=== PATIENT | male | born 1985 | race Caucasian/White ===

== ENCOUNTER 2017-05-22 17:31 | Emergency (ER) | payer BC ==
--- NOTE | 2017-05-22 18:23 | EDM.PDOC ---
ED HPI GENERAL MEDICAL PROBLEM - General Stated Complaint: PT HURT RT ANKLE Time Seen by Provider: 05/22/17 17:36 Source of Information: Reports: Patient History Limitations: Reports: No Limitations - History of Present Illness INITIAL COMMENTS - FREE TEXT/NARRATIVE: HISTORY AND PHYSICAL: History of present illness: Patient is a 31-year-old male who presents to the emergency room today with complaints of right heel pain. He states that he was putting his shoe on pullback on his toes to put his socks shoe on and felt some discomfort. He states he was able to ambulate without any pain or difficulty. As the day progressed he started to have increasing pain to his right heel, which was worse with weightbearing. Any injury or trauma. Denies any localized areas of erythema or warmth. Patient denies any fever, chills, chest pain, shortness of breath, abdominal pain, nausea, vomiting, diarrhea or constipation. Review of systems: As per history of present illness and below otherwise all systems reviewed and negative. Past medical history: As per history of present illness and as reviewed below otherwise noncontributory. Surgical history: As per history of present illness and as reviewed below otherwise noncontributory. Social history: No reported history of drug or alcohol abuse. Family history: As per history of present illness and as reviewed below otherwise noncontributory. Physical exam: General:Well-developed and well-nourished 31-year-old male. Alert and oriented. Nontoxic appearing and in no acute distress. HEENT: Atraumatic, normocephalic, pupils equal and reactive bilaterally, negative for conjunctival pallor or scleral icterus, mucous membranes moist, throat clear, neck supple, nontender, trachea midline. No drooling or trismus noted. No meningeal signs Lungs: Clear to auscultation, breath sounds equal bilaterally, chest nontender. Heart: S1S2, regular rate and rhythm without overt murmur Abdomen: Soft, obese, nontender. Pelvis: Stable nontender. Genitourinary: Deferred. Rectal: Deferred. Skin: Intact, warm, dry. No lesions or rashes noted. Extremities: Atraumatic, moves all extremities per self without difficulty or deficits. Active flexion and extension of the right ankle without pain. Does have pain when pressing directly on the right calcaneus. Does not appear to have any Achilles tendon involvement, negative for cords or calf pain. Strong pedal pulses bilaterally. Capillary refill less than 3 seconds bilaterally. Neurovascular unremarkable. Neuro: Awake, alert, oriented. Cranial nerves II through XII unremarkable. Cerebellum unremarkable. Motor and sensory unremarkable throughout. Exam nonfocal. Notes: X-ray shows no evidence of fracture, dislocation or soft tissue swelling. Discussed with patient the possibilities of a multitude of factors which could be causing his heel discomfort. We discussed his weight, overuse or tendon involvement. Will give the patient crutches as he states it is too painful to bear weight. A portable care measures were reviewed. I encouraged him to follow- up with podiatry in the next couple days. Both patient and his voice understanding and are agreeable to plan of care. They deny any questions at this time. Diagnostics: [] Therapeutics: Crutches Impression: Heel Pain, Right Plan: 1. Rest, ice, elevate the affected extremity. 2. Tylenol and/or ibuprofen as needed for pain management. Tramadol for evening/ nighttime use. This medication may cause drowsiness, so do not take while driving or needing to function outside the house. You may use the crutches as needed to be nonweight bearing over the next 2-3 days. 3. Please follow-up with podiatry for further evaluation and management if he continued to have pain. Return to the ED as needed and as discussed. Definitive disposition and diagnosis as appropriate pending reevaluation and review of above. Onset: Today Duration: Hour(s): Location: Reports: Lower Extremity, Right Right Ankle Pain Score (Numeric/FACES): 10 - Related Data Allergies Allergy/AdvReac Type Severity Reaction Status Date / Time No Known Allergies Allergy Verified 05/22/17 18:10 Home Meds: Home Meds . [No Known Home Meds] 05/22/17 [History] Review of Systems - Review of Systems Review Of Systems: ROS reveals no pertinent complaints other than HPI. ED EXAM, GENERAL - Physical Exam Exam: See Below (See dictation) Course - Vital Signs Last Recorded V/S: Last Vital Signs Temp 98.5 F 05/22/17 18:11 Pulse 89 05/22/17 18:11 Resp 16 05/22/17 18:11 BP 148/94 H 05/22/17 18:11 Pulse Ox 95 05/22/17 18:11 - Orders/Labs/Meds Orders: Active Orders 24 hr Category Date Time Status Ankle Min 3V Rt [CR] Stat Exams 05/22/17 17:36 Taken DME for Discharge [COMM] Stat Oth 05/22/17 18:24 Ordered Departure - Departure Time of Disposition: 18:23 Disposition: Home, Self-Care 01 Clinical Impression: Pain of right heel - Discharge Information Instructions: Plantar Fasciitis With Rehab-[facility] Referrals: PCP,None [Primary Care Provider] - Additional Instructions: The following information is given to patients seen in the emergency department who are being discharged to home. This information is to outline your options for follow-up care. We provide all patients seen in our emergency department with a follow-up referral. The need for follow-up, as well as the timing and circumstances, are variable depending upon the specifics of your emergency department visit. If you don't have a primary care physician on staff, we will provide you with a referral. We always advise you to contact your personal physician following an emergency department visit to inform them of the circumstance of the visit and for follow-up with them and/or the need for any referrals to a consulting specialist. The emergency department will also refer you to a specialist when appropriate. This referral assures that you have the opportunity for follow-up care with a specialist. All of these measure are taken in an effort to provide you with optimal care, which includes your follow-up. Under all circumstances we always encourage you to contact your private physician who remains a resource for coordinating your care. When calling for follow-up care, please make the office aware that this follow-up is from your recent emergency room visit. If for any reason you are refused follow-up, please contact the [facility] Emergency Department at and asked to speak to the emergency department charge nurse. [facility] [address] [place] [id number] [place] [address] [address] 1. Rest, ice, elevate the affected extremity. 2. Tylenol and/or ibuprofen as needed for pain management. Tramadol for evening/ nighttime use. This medication may cause drowsiness, so do not take while driving or needing to function outside the house. You may use the crutches as needed to be nonweight bearing over the next 2-3 days. 3. Please follow-up with podiatry for further evaluation and management if he continued to have pain. Return to the ED as needed and as discussed. - My Orders Last 24 Hours: My Active Orders 05/22/17 17:36 Ankle Min 3V Rt [CR] Stat 05/22/17 18:24 DME for Discharge [COMM] Stat - Assessment/Plan Last 24 Hours: My Active Orders 05/22/17 17:36 Ankle Min 3V Rt [CR] Stat 05/22/17 18:24 DME for Discharge [COMM] Stat
--- NOTE | 2017-05-23 14:25 | CR ---
EXAM DATE: 05/22/17 PATIENT'S AGE: 31 Patient: NICKIE GREEN Facility: [place], [place] Site . Site : 1985 Study: XRay Extremity Right ANKLE [id number]/12/2018 5:49:31 PM Ordering Physician: Doctor Walls Final Report: Indication: Right ankle pain Technique: Right ankle 3 views Comparison: None Findings: Bones: Alignment is normal. No fractures or bone lesions. Joint spaces: Joint spaces are well maintained. No degenerative changes. Soft tissues: Unremarkable. Impression: No findings to explain pain. Dictated by Yefri Garcia MD @ May 22 2017 6:25PM (Electronic Signature) Report Signed by Proxy. ELISEO
== END 2017-05-22 18:42 | disposition home or self-care (01) ==
LOC: MW.ED 17:31
DX: M79.671 Pain in right foot (principal)
CPT/HCPCS: 73610-26-RT; 73610-RT; 99283

== ENCOUNTER 2017-07-16 16:10 | Emergency (ER) | payer BC ==
--- NOTE | 2017-07-16 16:50 | EDM.PDOC ---
ED HPI GENERAL MEDICAL PROBLEM - General Chief Complaint: Lower Extremity Injury/Pain Stated Complaint: RIGHT KNEE PAIN Time Seen by Provider: 07/16/17 16:44 - History of Present Illness INITIAL COMMENTS - FREE TEXT/NARRATIVE: HISTORY AND PHYSICAL: History of present illness: Patient 31-year-old white male presents with concern of right knee pain he said an injury 2 days ago when his knee "popped" he states he's had intermittent problems with his right knee for years he was seen recently at a clinic there was no imaging studies done and he was told he has knee pain with no other follow-up or specifics given. Review of systems: As per history of present illness and below otherwise all systems reviewed and negative. Past medical history: As per history of present illness and as reviewed below otherwise noncontributory. Surgical history: As per history of present illness and as reviewed below otherwise noncontributory. Social history: No reported history of drug or alcohol abuse. Family history: As per history of present illness and as reviewed below otherwise noncontributory. Physical exam: HEENT: Atraumatic, normocephalic, pupils reactive, negative for conjunctival pallor or scleral icterus, mucous membranes moist, throat clear, neck supple, nontender, trachea midline. Lungs: Clear to auscultation, breath sounds equal bilaterally, chest nontender. Heart: S1S2, regular, negative for clicks, rubs, or JVD. Abdomen: Soft, nondistended, nontender. Negative for masses or hepatosplenomegaly. Negative for costovertebral tenderness. Pelvis: Stable nontender. Genitourinary: Deferred. Rectal: Deferred. Extremities: Right knee joint is grossly stable no point tenderness no crepitation no effusion appreciated Neuro: Awake, alert, oriented. Cranial nerves II through XII unremarkable. Cerebellum unremarkable. Motor and sensory unremarkable throughout. Exam nonfocal. Diagnostics: X-ray right knee Therapeutics: None Impression: #1 intermittent right knee pain #2 recent right knee injury Definitive disposition and diagnosis as appropriate pending reevaluation and review of above. right knee Pain Score (Numeric/FACES): 7 - Related Data Allergies Allergy/AdvReac Type Severity Reaction Status Date / Time No Known Allergies Allergy Verified 07/16/17 16:23 Home Meds: Home Meds . [No Known Home Meds] 05/22/17 [History] Past Medical History - Past Health History Medical/Surgical History: Denies Medical/Surgical History - Infectious Disease History Infectious Disease History: Reports: Chicken Pox Social & Family History - Family History Family Medical History: Noncontributory - Tobacco Use Smoking Status *Q: Never Smoker - Caffeine Use Caffeine Use: Reports: None - Alcohol Use Days Per Week of Alcohol Use: 2 Number of Drinks Per Day: 3 Total Drinks Per Week: 6 - Recreational Drug Use Recreational Drug Use: No Review of Systems - Review of Systems Review Of Systems: ROS reveals no pertinent complaints other than HPI. ED EXAM, GENERAL - Physical Exam Exam: See Below (See dictation) Course - Vital Signs Last Recorded V/S: Last Vital Signs Temp 37.2 C 07/16/17 16:24 Pulse 112 H 07/16/17 16:24 Resp 18 07/16/17 16:24 BP 163/93 H 07/16/17 16:24 Pulse Ox 97 07/16/17 16:24 - Orders/Labs/Meds Orders: Active Orders 24 hr Category Date Time Status Knee 3V Rt [CR] Stat Exams 07/16/17 16:48 Ordered Departure - Departure Time of Disposition: 16:49 Disposition: Home, Self-Care 01 Condition: Good Clinical Impression: Knee injury - Discharge Information Referrals: PCP,None [Primary Care Provider] - Additional Instructions: The following information is given to patients seen in the emergency department who are being discharged to home. This information is to outline your options for follow-up care. We provide all patients seen in our emergency department with a follow-up referral. The need for follow-up, as well as the timing and circumstances, are variable depending upon the specifics of your emergency department visit. If you don't have a primary care physician on staff, we will provide you with a referral. We always advise you to contact your personal physician following an emergency department visit to inform them of the circumstance of the visit and for follow-up with them and/or the need for any referrals to a consulting specialist. The emergency department will also refer you to a specialist when appropriate. This referral assures that you have the opportunity for followup care with a specialist. All of these measure are taken in an effort to provide you with optimal care, which includes your followup. Under all circumstances we always encourage you to contact your private physician who remains a resource for coordinating your care. When calling for followup care, please make the office aware that this follow-up is from your recent emergency room visit. If for any reason you are refused follow-up, please contact the [facility] emergency department at and asked to speak to the emergency department charge nurse. [facility] Special[facility] - Orthopedic Clinic [address], [address] [place] [address] Motrin/Tylenol as directed call to schedule appointment with orthopedic clinic above return as needed as discussed - My Orders Last 24 Hours: My Active Orders 07/16/17 16:48 Knee 3V Rt [CR] Stat - Assessment/Plan Last 24 Hours: My Active Orders 07/16/17 16:48 Knee 3V Rt [CR] Stat
--- NOTE | 2017-07-17 09:09 | CR ---
EXAM DATE: 07/16/17 PATIENT'S AGE: 31 Patient: NICKIE GREEN Facility: [place], [place] Site . Site : 1985 Study: XRay Knee Right [id number]/6/2018 5:27:10 PM Ordering Physician: Fanta Elizabeth Final Report: Indication: Popping sensation in knee, pain Technique: Three views right knee Comparison: None Findings: Bones: Alignment is normal. No fractures or bone lesions. Joint spaces: Unremarkable. Soft tissues: Small suprapatellar effusion. Impression: No acute osseous abnormality. Small suprapatellar effusion. Dictated by Nesha Reis MD @ Jul 16 2017 6:05PM (Electronic Signature) Report Signed by Proxy. ELISEO
== END 2017-07-16 17:50 | disposition home or self-care (01) ==
LOC: MW.ED 16:10
DX: S89.91XA Unspecified injury of right lower leg, initial encounter (principal); X50.9XXA Other and unspecified overexertion or strenuous movements or postures, initial encounter
CPT/HCPCS: 73562-26-RT; 73562-RT; 99283

== ENCOUNTER 2018-05-26 19:53 | Emergency (ER) | payer BC ==
--- NOTE | 2018-05-26 20:26 | EDM.PDOC ---
ED HPI GENERAL MEDICAL PROBLEM - General Chief Complaint: Lower Extremity Injury/Pain Stated Complaint: LEFT ANKLE Time Seen by Provider: 05/26/18 20:16 - History of Present Illness INITIAL COMMENTS - FREE TEXT/NARRATIVE: HISTORY AND PHYSICAL: History of present illness: Patient 32-year-old white male sensory concern of acute left ankle injury that occurred when he rolled his ankle after golfing today. He's had pain and swelling since he denies other trauma or concern Review of systems: As per history of present illness and below otherwise all systems reviewed and negative. Past medical history: As per history of present illness and as reviewed below otherwise noncontributory. Surgical history: As per history of present illness and as reviewed below otherwise noncontributory. Social history: No reported history of drug or alcohol abuse. Family history: As per history of present illness and as reviewed below otherwise noncontributory. Physical exam: HEENT: Atraumatic, normocephalic, pupils reactive, negative for conjunctival pallor or scleral icterus, mucous membranes moist, throat clear, neck supple, nontender, trachea midline. Lungs: Clear to auscultation, breath sounds equal bilaterally, chest nontender. Heart: S1S2, regular, negative for clicks, rubs, or JVD. Abdomen: Soft, nondistended, nontender. Negative for masses or hepatosplenomegaly. Negative for costovertebral tenderness. Pelvis: Stable nontender. Genitourinary: Deferred. Rectal: Deferred. Extremities: Left ankle has moderate swelling and tenderness in the region of lateral malleolus Achilles tendon is normal there is no proximal fibula tenderness neurovascular exam is unremarkable Neuro: Awake, alert, oriented. Cranial nerves II through XII unremarkable. Cerebellum unremarkable. Motor and sensory unremarkable throughout. Exam nonfocal. Diagnostics: X-ray left ankle Therapeutics: Marvin wrap crutches Impression: #1 acute left ankle injury Definitive disposition and diagnosis as appropriate pending reevaluation and review of above. Left Ankle Pain Score (Numeric/FACES): 10 - Related Data Allergies Allergy/AdvReac Type Severity Reaction Status Date / Time No Known Allergies Allergy Verified 05/26/18 20:22 Home Meds: Home Meds . [No Known Home Meds] 05/22/17 [History] Past Medical History - Past Health History Medical/Surgical History: Denies Medical/Surgical History - Infectious Disease History Infectious Disease History: Reports: Chicken Pox Social & Family History - Family History Family Medical History: Noncontributory - Caffeine Use Caffeine Use: Reports: None Review of Systems - Review of Systems Review Of Systems: ROS reveals no pertinent complaints other than HPI. ED EXAM, GENERAL - Physical Exam Exam: See Below (See dictation) Course - Vital Signs Last Recorded V/S: Last Vital Signs Temp 36.7 C 05/26/18 20:18 Pulse 119 H 05/26/18 20:18 Resp BP 135/99 H 05/26/18 20:18 Pulse Ox 96 05/26/18 20:18 - Orders/Labs/Meds Orders: Active Orders 24 hr Category Date Time Status Ankle Min 3V Lt [CR] Stat Exams 05/26/18 19:57 Ordered Departure - Departure Time of Disposition: 20:24 Disposition: Home, Self-Care 01 Condition: Good Clinical Impression: Ankle injury - Discharge Information Referrals: PCP,None [Primary Care Provider] - Additional Instructions: The following information is given to patients seen in the emergency department who are being discharged to home. This information is to outline your options for follow-up care. We provide all patients seen in our emergency department with a follow-up referral. The need for follow-up, as well as the timing and circumstances, are variable depending upon the specifics of your emergency department visit. If you don't have a primary care physician on staff, we will provide you with a referral. We always advise you to contact your personal physician following an emergency department visit to inform them of the circumstance of the visit and for follow-up with them and/or the need for any referrals to a consulting specialist. The emergency department will also refer you to a specialist when appropriate. This referral assures that you have the opportunity for followup care with a specialist. All of these measure are taken in an effort to provide you with optimal care, which includes your followup. Under all circumstances we always encourage you to contact your private physician who remains a resource for coordinating your care. When calling for followup care, please make the office aware that this follow-up is from your recent emergency room visit. If for any reason you are refused follow-up, please contact the [facility] emergency department at and asked to speak to the emergency department charge nurse. [facility] - Orth[facility] Professional [address], [address] [place] [address] Motrin/Tylenol as directed Marvin wrap crutches as directed follow-up orthopedic clinic as needed discussed return as needed as discussed
[2018-05-26] MEDS: Acetaminophen/HYDROcodone 325-10 MG Tab PO ONE (20:52)
--- NOTE | 2018-05-26 21:07 | CR ---
INDICATION: Ankle injury. TECHNIQUE: Three views. COMPARISON: None. IMPRESSION: Lateral soft tissue swelling. No fracture. Ankle mortise is symmetric. Dictated by Levi Buchanan MD @ 05/26/2018 9:05:41 PM Dictated by: Levi Buchanan MD @ 05/26/2018 21:05:45 (Electronically Signed)
== END 2018-05-26 20:53 | disposition home or self-care (01) ==
LOC: MW.ED 19:53
DX: S99.912A Unspecified injury of left ankle, initial encounter (principal); X50.1XXA Overexertion from prolonged static or awkward postures, initial encounter; Y93.53 Activity, golf
CPT/HCPCS: 73610; 99283; A9270; 99282

== ENCOUNTER 2018-11-03 08:12 | Emergency (ER) | payer BC ==
[2018-11-03] MEDS ORDERED: Aspirin 81 MG Tab.Chew PO ONE (08:15)
[2018-11-03] MEDS ORDERED: Sodium Chloride 0.9% 1,000 ML IV ONE (08:15)
[2018-11-03] MEDS ORDERED: Pantoprazole 40 MG Vial IVPUSH ONE (08:19)
[2018-11-03] MEDS ORDERED: Sodium Chloride 0.9% 20 ML ONE (08:27)
--- NOTE | 2018-11-03 08:47 | EDM.PDOC ---
ED HPI GENERAL MEDICAL PROBLEM - General Chief Complaint: Chest Pain Stated Complaint: chest pain Time Seen by Provider: 11/03/18 08:15 Source of Information: Reports: Patient History Limitations: Reports: No Limitations - History of Present Illness INITIAL COMMENTS - FREE TEXT/NARRATIVE: 32-year-old male patient presents to ER department complaining of chest pain. He reports the pain starting 30 minutes prior to ER arrival. Pain is located substernally and is described as being tight and sharp in nature. He did have associated sweating and shortness of breath. Patient reports that at the time of onset chest pain that he was sitting at work and completing paperwork. Pain does not radiate anywhere. Pain rated as a 3/10. He reports the pain has improved somewhat since arrival to ER and is currently described as being tight and dull. He did take 2 Cherry pills prior to coming to ER but is unsure what dose they were. He reports a similar incidence of chest pain approximately 1 month ago. He chews tobacco and denies any illicit drug use. He denies any fevers, chills, blurry vision, vomiting or dizziness. Patient reports no history of GA, HTN, high cholesterol or diabetes. EKG on admission showed normal sinus rhythm. Mid-Sternal Chest Pain Score (Numeric/FACES): 9 - Related Data Allergies Allergy/AdvReac Type Severity Reaction Status Date / Time No Known Allergies Allergy Verified 11/03/18 08:18 Home Meds: Home Meds metFORMIN [Glucophage XR] 500 mg PO BIDMEALS 30 Days #60 tab.er 11/03/18 [Rx] Past Medical History - Past Health History Medical/Surgical History: Denies Medical/Surgical History Psychiatric History: Reports: None - Infectious Disease History Infectious Disease History: Reports: None Social & Family History - Family History Family Medical History: Noncontributory - Tobacco Use Smoking Status *Q: Current Every Day Smoker Years of Tobacco use: 12 Packs/Tins Daily: 0.5 - Caffeine Use Caffeine Use: Reports: None - Recreational Drug Use Recreational Drug Use: No ED ROS GENERAL - Review of Systems Review Of Systems: ROS reveals no pertinent complaints other than HPI. ED EXAM, GENERAL - Physical Exam Exam: See Below Exam Limited By: No Limitations General Appearance: Alert, No Apparent Distress Eye Exam: Left Eye: PERRL Ears: Normal External Exam, Hearing Grossly Normal Nose: Normal Inspection, Normal Mucosa Throat/Mouth: Normal Inspection, Normal Oropharynx Head: Atraumatic, Normocephalic Neck: Normal Inspection, Supple, Non-Tender Respiratory/Chest: No Respiratory Distress, Normal Breath Sounds Cardiovascular: Normal Peripheral Pulses, Regular Rate, Rhythm GI/Abdominal: Normal Bowel Sounds, Soft, Non-Tender, No Distention (Male) Exam: Deferred Rectal (Males) Exam: Deferred Extremities: Normal Range of Motion, Other (trace pitting edema bilaterally) Neurological: Alert, Oriented Psychiatric: Normal Affect, Normal Mood Skin Exam: Warm, Dry, Intact Course - Vital Signs Last Recorded V/S: Last Vital Signs Temp 97.3 F 11/03/18 08:15 Pulse 85 11/03/18 09:26 Resp 18 11/03/18 09:26 BP 140/76 11/03/18 09:26 Pulse Ox 95 11/03/18 09:26 - Orders/Labs/Meds Orders: Active Orders 24 hr Category Date Time Status EKG Documentation Completion [RC] STAT Care 11/03/18 08:15 Active Chest 1V Frontal [CR] Stat Exams 11/03/18 08:15 Ordered GLYCOSYLATED HEMOGLOBIN,HGBA1C [CHEM] Stat Lab 11/03/18 09:29 Ordered Labs: Laboratory Tests 11/03/18 11/03/18 11/03/18 Range/Units 08:23 08:23 08:43 WBC 5.00 (4.0-11.0) K/uL RBC 5.06 (4.50-5.90) M/uL Hgb 15.6 (13.0-17.0) g/dL Hct 44.7 (38.0-50.0) % MCV 88.3 (80.0-98.0) fL MCH 30.8 (27.0-32.0) pg MCHC 34.9 (31.0-37.0) g/dL RDW Std Deviation 39.4 (28.0-62.0) fl RDW Coeff of Ena 13 (11.0-15.0) % Plt Count 147 L (150-400) K/uL MPV 10.40 (7.40-12.00) fL Neut % (Auto) 53.6 (48.0-80.0) % Lymph % (Auto) 34.0 (16.0-40.0) % [place] % (Auto) 9.2 (0.0-15.0) % Eos % (Auto) 3.0 (0.0-7.0) % Baso % (Auto) 0.2 (0.0-1.5) % Neut # (Auto) 2.7 (1.4-5.7) K/uL Lymph # (Auto) 1.7 (0.6-2.4) K/uL [place] # (Auto) 0.5 (0.0-0.8) K/uL Eos # (Auto) 0.2 (0.0-0.7) K/uL Baso # (Auto) 0.0 (0.0-0.1) K/uL Nucleated RBC % 0.0 /100WBC Nucleated RBCs # 0 K/uL Sodium 141 (136-148) mmol/L Potassium 4.2 (3.5-5.1) mmol/L Chloride 104 (98-107) mmol/L Carbon Dioxide 25.9 (21.0-32.0) mmol/L BUN 14 (7.0-18.0) mg/dL Creatinine 1.1 (0.8-1.3) mg/dL Est Cr Clr Drug Dosing 107.78 mL/min Estimated GFR (MDRD) > 60.0 ml/min Glucose 228 H (74-106) mg/dL Calcium 9.4 (8.5-10.1) mg/dL Total Bilirubin 0.6 (0.2-1.0) mg/dL AST 54 H (15-37) IU/L ALT 104 H (14-63) IU/L Alkaline Phosphatase 82 (46-116) U/L Troponin I < 0.050 (0.000-0.056) ng/mL Total Protein 7.9 (6.4-8.2) g/dL Albumin 3.9 (3.4-5.0) g/dL Globulin 4.0 (2.6-4.0) g/dL Albumin/Globulin Ratio 1.0 (0.9-1.6) Lipase 163 (73-393) U/L Urine Color YELLOW Urine Appearance CLEAR Urine pH 7.0 (5.0-8.0) Ur Specific [place] 1.015 (1.001-1.035) Urine Protein NEGATIVE (NEGATIVE) mg/dL Urine Glucose (UA) 500 H (NEGATIVE) mg/dL Urine Ketones NEGATIVE (NEGATIVE) mg/dL Urine Occult Blood NEGATIVE (NEGATIVE) Urine Nitrite NEGATIVE (NEGATIVE) Urine Bilirubin NEGATIVE (NEGATIVE) Urine Urobilinogen 0.2 (<2.0) EU/dL Ur Leukocyte Esterase NEGATIVE (NEGATIVE) Meds: Medications Discontinued Medications Generic Name Dose Route Start Last Admin Trade Name Qing PRN Reason Stop Dose Admin Aspirin 324 mg 11/03/18 08:15 11/03/18 08:36 Aspirin PO 11/03/18 08:16 324 mg ONETIME ONE Administration Sodium Chloride 1,000 mls @ 999 mls/hr 11/03/18 08:15 11/03/18 08:35 Normal Saline IV 11/03/18 09:15 999 mls/hr STAT ONE Administration Sodium Chloride Confirm 11/03/18 08:27 11/03/18 08:38 Normal Saline Administered 11/03/18 08:28 20 mls/hr Dose Administration 20 mls @ as directed .ROUTE .STK-MED ONE Nitroglycerin 0.4 mg 11/03/18 09:16 11/03/18 09:26 Nitrostat SL 11/03/18 09:17 Not Given ONETIME STA Pantoprazole Sodium 80 mg 11/03/18 08:19 11/03/18 08:38 Protonix Iv IVPUSH 11/03/18 08:20 80 mg .BOLUS ONE Administration - Re-Assessments/Exams Free Text/Narrative Re-Assessment/Exam: 11/03/18 09:14 Patient notes minor improvement in chest pain. Currently rated as a 3/10 with occasional flare up in chest "tightness." CXR showed no acute cardiopulmonary process based on my read. Troponin negative. Lipase normal. Mildly elevated AST and ALT. 11/03/18 09:27 Patient reports chest pain has resolved completely. Nitroglycerin not given. Departure - Departure Time of Disposition: 09:38 Disposition: Home, Self-Care 01 Condition: Good Clinical Impression: New onset type 2 diabetes mellitus, GERD (gastroesophageal reflux disease) Prescriptions: metFORMIN [Glucophage XR] 500 mg PO BIDMEALS 30 Days #60 tab.er Referrals: PCP,None [Primary Care Provider] - Forms: ED Department Discharge - My Orders Last 24 Hours: My Active Orders 11/03/18 09:29 GLYCOSYLATED HEMOGLOBIN,HGBA1C [CHEM] Stat - Assessment/Plan Last 24 Hours: My Active Orders 11/03/18 09:29 GLYCOSYLATED HEMOGLOBIN,HGBA1C [CHEM] Stat Assessment:: Assessment: 1. Atypical chest pain, resolved. 2. Type 2 diabetes mellitus, new-onset. 3. Transaminitis. Plan: Patient's chest pain resolved at time of discharge. He will require follow-up with PCP for new-onset type 2 diabetes mellitus and transaminitis. Will start patient on metformin 500 mg BID. All questions answered.
[2018-11-03 09:00] LABS: BLOOD UREA NITROGEN,BUN 14 mg/dL (7.0-18.0); CARBON DIOXIDE,CO2 25.9 mmol/L (21.0-32.0); CHLORIDE,CL 104 mmol/L (98-107); GLUCOSE RANDOM 228 mg/dL (74-106); LIPASE 163 U/L (73-393); POTASSIUM,K 4.2 mmol/L (3.5-5.1); SODIUM,NA 141 mmol/L (136-148)
[2018-11-03] MEDS ORDERED: Nitroglycerin 0.4 MG Tab.SL SL STA (09:16)
--- NOTE | 2018-11-03 09:53 | CR ---
INDICATION: pain TECHNIQUE: Chest 1 view. COMPARISON: None. FINDINGS: Cardiovascular and mediastinum: Heart size and vasculature are normal in caliber and appearance. Mediastinum is within normal limits. Lungs and pleural space: Lungs are clear. No sign of infiltrate or mass. No sign of pleural effusion. No pneumothorax. Bones and soft tissues: No significant findings. IMPRESSION: Unremarkable chest. Dictated by: Zeeshan Justin MD @ 11/03/2018 09:52:44 (Electronically Signed)
[2018-11-03 09:55] LABS: HEMOGLOBIN A1C 6.9 % (4.5-6.2)
== END 2018-11-03 09:56 | disposition home or self-care (01) ==
LOC: MW.ED 08:12
DX: E11.9 Type 2 diabetes mellitus without complications (principal); K21.9 Gastro-esophageal reflux disease without esophagitis; F17.220 Nicotine dependence, chewing tobacco, uncomplicated
CPT/HCPCS: 36415; 71045; 80053; 81003; 83036; 83690; 84484; 85025; 93005; 96361; 96374; 99285; A9270; C9113; J7040

== ENCOUNTER 2022-06-22 20:29 | Emergency (ER) | payer BC ==
[2022-06-22] MEDS ORDERED: Ketorolac 30 MG/ML SDV IVPUSH ONE (20:41)
[2022-06-22] MEDS ORDERED: Acetaminophen/oxyCODONE 325-5 MG Tab PO ONE (20:44)
[2022-06-22 20:55] LABS: BASOPHILS PERCENT AUTO 0.1 % (0.0-1.5); EOSINOPHILS ABSOLUTE AUTO 0.1 K/uL (0.0-0.7); EOSINOPHILS PERCENT AUTO 1.1 % (0.0-7.0); HEMOGLOBIN 16.3 g/dL (13.0-17.0); LYMPHOCYTES ABSOLUTE AUTO 1.9 K/uL (0.6-2.4); LYMPHOCYTES PERCENT AUTO 24.1 % (16.0-40.0); MEAN CORPUSCULAR HEMOGLOBIN 30.8 pg (27.0-32.0); MEAN CORPUSCULAR HGB CONC 36.2 g/dL (31.0-37.0); MEAN CORPUSCULAR VOLUME 85.1 fL (80.0-98.0); MONOCYTES ABSOLUTE AUTO 0.7 K/uL (0.0-0.8); MONOCYTES PERCENT AUTO 8.1 % (0.0-15.0); NEUTROPHILS ABSOLUTE AUTO 5.4 K/uL (1.4-5.7); NEUTROPHILS PERCENT AUTO 66.6 % (48.0-80.0); NRBC ABSOLUTE 0 K/uL; PLATELET COUNT,PLT 155 K/uL (150-400); RED BLOOD CELL COUNT 5.29 M/uL (4.50-5.90); WHITE BLOOD CELL COUNT,WBC 8.04 K/uL (4.0-11.0)
[2022-06-22 21:23] LABS: A/G RATIO 1.2 (0.9-1.6); ALANINE AMINOTRANSFERASE,ALT 55 IU/L (14-63); ALBUMIN 4.1 g/dL (3.4-5.0); ALKALINE PHOSPHATASE 76 U/L (46-116); ASPARTATE AMNIOTRANSFERASE,AST 18 IU/L (15-37); BILIRUBIN TOTAL 0.4 mg/dL (0.2-1.0); BLOOD UREA NITROGEN,BUN 14 mg/dL (7.0-18.0); C-REACTIVE PROTEIN <0.20 mg/dL (0.00-0.90); CALCIUM 9.5 mg/dL (8.5-10.1); CARBON DIOXIDE,CO2 29.7 mmol/L (21.0-32.0); CHLORIDE,CL 105 mmol/L (98-107); CREATININE 1.2 mg/dL (0.8-1.3); ESTIMATED GFR 81 mL/min (>60); GLUCOSE RANDOM 149 mg/dL (74-106); POTASSIUM,K 4.2 mmol/L (3.5-5.1); PROTEIN TOTAL,TP 7.6 g/dL (6.4-8.2); SODIUM,NA 141 mmol/L (136-148)
[2022-06-22] MEDS ORDERED: Cephalexin 500 MG Cap PO ONE (22:44)
== END 2022-06-22 22:59 | disposition home or self-care (01) ==
LOC: MW.ED 20:29
DX: M79.671 Pain in right foot (principal)
CPT/HCPCS: 36415; 73610; 73620; 80053; 85025; 85379; 86140; 96374; 99283; A9270; J1885